=== PATIENT | male | born 2000 | race Caucasian/White ===

== ENCOUNTER 2024-04-14 06:33 | Day surgery (SDC) | payer BC, SELFPAY ==
[2024-04-14] VITALS (8 sets, daily range): BP systolic 116–142; BP diastolic 58–81; BMI 23.7
[2024-04-14] MEDS: NORMOSOL-R 1000 IV (11:29)
[2024-04-14] MEDS: TYLENOL 1000 MG PO (11:32)
--- NOTE | 2024-04-14 13:22 | OR.RPT ---
Operative Report
Operative Report
Primary Surgeon: Latonya
Assisting: Ariel WOODWARD
Pre-op Diagnosis: Right inguinal hernia
Post-op Diagnosis: Same
Procedure Performed: Robot assisted laparoscopic repair right inguinal hernia
Anesthesia Type: GETA
Specimen / Cultures: None
Estimated Blood Loss: 5cc
Complications: None immediate
Operative Findings: Indirect defect with deep[, long sac, totally reduced, fatty cord, moderate cord lipoma; XL MID 3D Max
Date of surgery: 04/14/24
Indications:� This 24M developed symptomatic right inguinal hernia. Robot assisted laparoscopic repair was planned.
Description of procedure:� The patient was taken to the operating room and positioned into supine position. The patient�s abdomen was prepped and draped in standard sterile fashion. A time-out was completed verifying correct patient, procedure,
site, positioning, and implants and special equipment prior to beginning this procedure.� The hernia was manually reduced after induction. A stab incision was made in the left upper quadrant, a Veress needle was inserted and proper position was
confirmed by aspiration and saline drop test. Following this, pneumoperitoneum was created with insufflation of carbon dioxide to 12 mmHg. Then a 8mm robotic trocar was inserted above and to the left of the umbilicus. A laparoscope was inserted and
the area of initial trocar entry and Veress needle placement were both inspected and no injuries were found. Two 8mm trocars were then placed lateral to the rectus sheath under direct visualization.
Both inguinal regions were inspected and the median umbilical ligament, medial umbilical ligament, and lateral umbilical fold were identified. Attention was turned to the right groin. The peritoneum was incised transversely above the defect and a
flap was developed in the caudad direction. Martinez�s ligament was identified ultimately dissected to its junction with the iliac vein and the space of Retzius was developed bluntly.� The dissection was continued inferiorly to the iliopubic tract,
with care taken to avoid injury to the femoral branch of the genitofemoral nerve and the lateral femoral cutaneous nerve. The cord structures were parietalized.
The direct space was inspected and a hernia was not identified. The femoral space was inspected no defect was identified.� The indirect space was inspected and a hernia was identified and reduced by gentle traction. The sac was long and deep and was
totally reduced. The canal was inspected and a moderate cord lipoma was identified and reduced.
Extra large right MID 3D max mesh was passed through a trocar. The mesh was placed into the preperitoneal space and moved into position to lay flat and completely cover the direct, indirect, and femoral spaces with overlap beyond the midline. The
mesh was secured into place using 2-0 vicryl suture to Martinez�s ligament medially and laterally. Care was taken to avoid the inferolateral triangles containing the iliac vessels and genital nerves. The peritoneal flap was closed over the mesh and
secured with 2-0 monocryl stratafix suture in similar positions of safety. A 14g angiocath was used to decompress the preperitoneal space revealing good seal and all mesh in good position without folding or curling.
After ensuring adequate hemostasis, the trocars were removed and the pneumoperitoneum allowed to escape. The trocar incisions were closed at the skin level using 4-0 monocryl and topical skin adhesive. All counts were correct and the patient
tolerated the procedure well and was taken to the postanesthesia care unit in stable condition.
The assistance of Ariel WOODWARD was required due to the complexity of the procedure. During the procedure he assisted with retraction, resection, and closure of the wound.
[2024-04-14] MEDS: ROXICODONE 5 MG PO (14:32)
== END 2024-04-14 14:56 | disposition home or self-care (01) ==
LOC: SDS 06:33
PROVIDERS: ATTENDING PHYSICIAN Surgery
DX: K40.90 Unilateral inguinal hernia, without obstruction or gangrene, not specified as recurrent (principal)
CPT/HCPCS: 49650; C1781

== ENCOUNTER 2024-10-19 02:21 | Emergency (ER) | payer BC, SELFPAY ==
[2024-10-19 02:23] VITALS: BP 124/85
--- NOTE | 2024-10-19 02:33 | ED.MUSCINJ ---
HPI-Injury
General
Chief Complaint: Musculo-Skeletal Complaint
Source: patient
Exam Limitations: none
Time Seen by Provider: 10/19/24 02:33
History of Present Illness-Injury
Initial Injury comments:
24-year-old male with left shoulder pain after falling onto his shoulder today. He is right-hand dominant. No prior injury. No other complaints
Phy Exam
Physical Exam
Physical Exam:
General: Well-appearing male no acute respiratory distress
Musculoskeletal exam: Left shoulder tender over the superior aspect of the shoulder. He has good range of motion. There is no deformity.
Skin is intact no laceration
Injury Course
Orders/Labs/Results
Orders:
Orders
10/19/24 02:22
Shoulder, Left, Trauma CR [CR Shoulder, Trauma - Left] Urgent
Comment:
Reason For Exam: fall, pain
10/19/24 02:35
Sling Left-Treatment ONCE
MDM/Problems Addressed
Differential Diagnosis Includes:
Left shoulder pain after falling on left shoulder. Consider contusion versus fracture versus dislocation
X-rays of the left shoulder demonstrate AC joint separation but no fracture. Patient placed in a sling will be advised to follow-up with orthopedics
*Critical Care Note
Total Time (30-74mins, 75-104mins- exclusive of procedures): Not Applicable
ED Attending Note
-
Portions of this chart may have been created with voice recognition software.� Occasional wrong word or��sound alike� substitutions may have occurred due to the inherent limitations of voice recognition software.
Discharge Plan
Departure
Patient Disposition: Home (Routine Discharge)
Date of Disposition: 10/19/24
Time of Disposition: 02:43
Patient with high blood pressure during this ER visit?: No
Discharge Problem:
Acromioclavicular (AC) joint injury
Instructions: Muscle and Bone Pain (DC)
Prescriptions:
No Action
Xolair
1 dose SC DIRECTED
Rx Instructions:
Q 7 Weeks; per mother last dose on 03/24/24;unable to provide exact dose at this time.
Rezalastine
2 spray BID
Rx Instructions:
2 nasal sprays bid
oxycodone 5 mg tablet
5 - 10 mg PO Q4HPRN PRN (Reason: moderate to severe pain) Qty: 15 0RF
Referrals:
Jayson Dugan MD [Active] -
Activity Restrictions/Additional Instructions:
Use sling for comfort. Use ibuprofen or Tylenol for pain. Return if worse otherwise follow-up orthopedics
Interventions
Interventions:
*Risk Screen - Suicide Last Done: 10/19/24 02:23
*General Assessment Last Done: 10/19/24 02:23
*Neglect/Abuse Screening Last Done: 10/19/24 02:23
*ED COVID-19 Vaccine History Last Done: 10/19/24 02:23
Discharge Date and Time
Print Language: ROMANIAN
== END 2024-10-19 03:03 | disposition home or self-care (01) ==
LOC: EMR 02:21
PROVIDERS: EMERGENCY PHYSICIAN Emergency Medicine; FAMILY PHYSICIAN Nurse Practitioner Family
DX: S49.92XA Unspecified injury of left shoulder and upper arm, initial encounter (principal); W19.XXXA Unspecified fall, initial encounter
CPT/HCPCS: 99283; 73030

== ENCOUNTER → 2025-10-05 15:17 | Outpatient (REF) | payer BC, SELFPAY | LOC: HWRAD 15:17 | PROVIDERS: ATTENDING PHYSICIAN Nurse Practitioner Family | DX: E04.9 Nontoxic goiter, unspecified (principal) | CPT/HCPCS: 76536 ==